=== PATIENT | female | born 1945 | race African-American/Black ===

== ENCOUNTER → 2017-07-02 | Outpatient (CLI) | payer MEDICARE, BC | LOC: BICRAD 14:38 | PROVIDERS: ATTEND Internal Medicine | DX: M25.551 Pain in right hip (principal); M16.11 Unilateral primary osteoarthritis, right hip | CPT/HCPCS: 72170 ==

== ENCOUNTER 2017-07-08 13:49 | Outpatient (CLI) | payer MEDICARE, BC ==
--- NOTE | 2017-07-08 16:05 | CT ---
CT LUMBAR SPINE 07/08/17. COMPO None. HISTORY: Low back pain, right hip pain, right lower extremity radiculopathy. TECHNIQUE: Serial axial CT imaging obtained at 2.5 mm intervals from lower thoracic spine through lower sacrum w ithout contrast. Coronal and sagittal reformatted imaging obtained. FINDINGS: There is a mild degree of levoscoliosis of the lumbar spine. Evaluation for central canal and/or neural foraminal stenosis is limited on routine CT. There is curvilinear calcification in the region of the right renal hilum, likely vascular in nature. Incompletely imaged stent material is suspected in the region of the left renal arterial vasculatur e. There are 5 lumbar-type vertebral bodies demonstrating anterolisthesis of L4 on L5 in the 5 mm range. T12-L1: No osseous cause of significant central canal and neural foraminal stenosis. Nonspecific 7 mm sclerotic lesion noted in the T12 vertebral body near the superior end plate. L1-2: There is no osseous cause of significant central canal or neural foraminal stenosis. L2-3: There is disk space narrowing with mild disk bulge. There is mild bilateral facet hypertrophy . There is no osseous cause of significant central canal stenosis. Probable mild neural foraminal s tenosis noted on the right. L3-4: There is moderate bilateral facet hypertrophy and hypertrophy of the ligamentum flavum. There is moderate/severe right neural foraminal stenosis on the basis of osteophyte encroachment. There i s a probable right paracentral disk herniation with right lateral recess stenosis. L4-5: There is severe bilateral facet hypertrophy with moderate/severe bilateral neural foraminal st enosis, right greater than left. There is a disk-osteophyte complex with disk space narrowing and a vacuum disk. There is at least moderate if not severe central canal stenosis. L5-S1: Prominent bilateral facet hypertrophy, left greater than right. Severe bilateral neural fora wyatt stenosis noted, left greater than right. Disk-osteophyte complex causes at least mild central canal stenosis. Vacuum disk noted. No acute fracture or evidence of dislocation. IMPRESSION: 1. Prominent multilevel degenerative change noted within the lumbar spine. No acute fracture or dis location is seen. Recommend MRI of the lumbar spine for full assessment of the degree of central can al and/or neural foraminal stenosis. 2. Vague 7 mm sclerotic focus within the T12 vertebral body, nonspecific. This likely represents a benign bone island in the absence of known metastatic disease/malignancy. Sclerotic metastatic focus cannot be fully excluded. This would be better assessed via MRI as well. If clinically warranted, whole body bone scan advised. CODE T POS: RODOLFO
== END 2017-07-08 13:50 | disposition home or self-care (01) ==
LOC: CT 13:49
PROVIDERS: ATTEND Internal Medicine
DX: M54.5 Low back pain (principal); M47.896 Other spondylosis, lumbar region
CPT/HCPCS: 72131

== ENCOUNTER 2017-12-23 14:18 | Outpatient (CLI) | payer MEDICARE, BC | END 2017-12-23 14:19 | disposition home or self-care (01) | LOC: BICMAMMO 14:18 | PROVIDERS: ATTEND Internal Medicine | DX: Z12.31 Encounter for screening mammogram for malignant neoplasm of breast (principal); Z13.820 Encounter for screening for osteoporosis; M85.88 Other specified disorders of bone density and structure, other site; Z78.0 Asymptomatic menopausal state; Z80.3 Family history of malignant neoplasm of breast; Z85.43 Personal history of malignant neoplasm of ovary | CPT/HCPCS: 77063; 77067; 77080 ==

== ENCOUNTER 2018-12-24 14:46 | Outpatient (CLI) | payer MEDICARE, BC ==
--- NOTE | 2018-12-24 15:50 | MMO ---
Bilateral MAMMO Bilat Screen [facility]. CLINICAL HISTORY: Patient is 73 years old and is seen for screening. The patient has the following family history of breast cancer: paternal aunt. The patient has a history of ovarian cancer. The patient has a history of left Ultrasound Guided Core Biopsy VIEWS: The views performed were: bilateral craniocaudal with tomosynthesis and bilateral mediolateral oblique with tomosynthesis. FILMS COMPARED: The present examination has been compared to prior imaging studies performed at [facility] on 12/16/2014, 12/19/2015, 12/19/2016 and 12/23/2017. MAMMOGRAM FINDINGS: The breasts are heterogeneously dense, which could obscure a lesion on mammography. Finding 1: There are stable benign appearing calcifications seen in both breasts. Finding 2: There is a stable biopsy clip seen in the left breast. There are no suspicious masses, suspicious calcifications, or new areas of architectural distortion. IMPRESSION: THERE IS NO MAMMOGRAPHIC EVIDENCE OF MALIGNANCY. A ROUTINE FOLLOW-UP MAMMOGRAM IN 1 YEAR IS RECOMMENDED. THE RESULTS OF THIS EXAM WERE SENT TO THE PATIENT. ACR BI-RADS Category 2 - Benign finding MAMMOGRAPHY NOTE: 1. A negative mammogram report should not delay a biopsy if a dominant of clinically suspicious mass is present. 2. Approximately 10% to 15% of breast cancers are not detected by mammography. 3. Adenosis and dense breasts may obscure an underlying neoplasm.
== END 2018-12-24 14:47 | disposition home or self-care (01) ==
LOC: BICMAMMO 14:46
PROVIDERS: ATTEND Internal Medicine
DX: Z12.31 Encounter for screening mammogram for malignant neoplasm of breast (principal); Z80.3 Family history of malignant neoplasm of breast; Z85.43 Personal history of malignant neoplasm of ovary
CPT/HCPCS: 77063; 77067

== ENCOUNTER 2019-05-22 08:47 | Day surgery (SDC) | payer MEDICARE, BC ==
[2019-05-21 11:08] VITALS: BMI 34.9
[2019-05-22] MEDS ORDERED: PROPOFOL 200 MG/20 ML VIAL ONE (10:23)
[2019-05-22] MEDS ORDERED: Lidocaine 1% PF 5 ML VIAL ONE (10:23)
--- NOTE | 2019-05-22 18:19 | OP ---
DATE OF PROCEDURE: 05/22/2019 OPERATIVE PROCEDURE: Esophagogastroduodenoscopy with biopsy. PREOPERATIVE DIAGNOSIS: A 74-year-old female with abdominal discomfort and nausea over the last 3 weeks and history of tarry stool. The patient on Dexilant for chronic acid reflux. The patient underwent esophagogastroduodenoscopy. POSTOPERATIVE DIAGNOSES: 1. Normal esophageal mucosa. 2. 3 cm size hiatus hernia. 3. Gastric polyps x3 with biopsy forceps. 4. Normal duodenum. DESCRIPTION OF PROCEDURE: The patient was placed on her left lateral position and was given sedation by Anesthesia Department. A Pentax video gastroscope under direct vision passed down the oropharynx past the GE junction into the stomach. The esophageal mucosa appears normal throughout. In the GE junction, no lesion seen. She had a hiatus hernia. Retroflexion failed to show any pathology in fundus or cardia. Over the gastric body, the patient was found to have 3 or 4 small polyps. One was large . In the incisura angularis and gastric antrum, no lesion seen. In the duodenal bulb and descending duodenum, no pathology seen. The stomach decompressed and the scope removed. DISCHARGE PLANNING: This is a 74-year-old female with dyspepsia, nausea over the last 4 weeks, which is persistent and also has history of passing dark stool. She underwent EGD and was found to have hiatal hernia and gastric polyps. There was no pathology seen. DISCHARGE RECOMMENDATIONS: 1. Resume medicines as before. 2. Come back to clinic in 3 weeks. Job ID: [id number]
== END 2019-05-22 12:44 | disposition home or self-care (01) ==
LOC: SDC 08:47
PROVIDERS: ATTEND Internal Medicine Gastroenterology
PROC: 0DB68ZX Excision of Stomach, Via Natural or Artificial Opening Endoscopic, Diagnostic (ICD-10-PCS; principal; 2019-05-22)
DX: K31.7 Polyp of stomach and duodenum (principal); K44.9 Diaphragmatic hernia without obstruction or gangrene; K21.9 Gastro-esophageal reflux disease without esophagitis; I10 Essential (primary) hypertension; Z79.82 Long term (current) use of aspirin
CPT/HCPCS: 88305; 88312; J2001; J2704

== ENCOUNTER 2019-12-03 08:10 | Outpatient (CLI) | payer MEDICARE, BC ==
--- NOTE | 2019-12-03 10:41 | ULT ---
ABDOMINAL ULTRASOUND: Date: 12/03/2019 INDICATION: Abdominal bloating. FINDINGS: Gallbladder has a normal sonographic appearance. No evidence of gallstones. Common bile duct is upper normal caliber measured at 6.0 mm. No evidence of intrahepatic ductal dilatation. Liver and spleen unremarkable. Pancreas is partially imaged and appears unremarkable as visualized. Both kidneys measure approximately 9.0 cm length. Echogenicity in the right kidney consistent with a midpole calculus measuring approximately 1.0 cm. No hydronephrosis. Kidneys otherwise unremarkable. A jos and IVC unremarkable as visualized. IMPRESSION: 1. Evidence of a right renal calculus. 2. Abdominal ultrasound otherwise unremarkable. POS: AGW
== END 2019-12-03 08:11 | disposition home or self-care (01) ==
LOC: BICULT 08:10
PROVIDERS: ATTEND Internal Medicine Gastroenterology
DX: R10.9 Unspecified abdominal pain (principal); N20.0 Calculus of kidney
CPT/HCPCS: 93975

== ENCOUNTER 2019-12-14 12:25 | Outpatient (CLI) | payer MEDICARE, BC ==
--- NOTE | 2019-12-14 15:52 | NM ---
HEPATOBILIARY SCAN: HISTORY:Unspecified abdominal pain, no gallstones on ultrasound of 12/03/2019 RADIOPHARMACEUTICAL: 5.3 mCi Technetium 99m Mebrofenin injected intravenously FINDINGS: There is normal tracer extraction by the liver with normal excretion into the biliary tracts and smal l bowel loops and normal filling of the gallbladder. The calculated gallbladder ejection fraction following an oral fatty meal measures 71%. IMPRESSION:Normal exam.
== END 2019-12-14 12:26 | disposition home or self-care (01) ==
LOC: NM 12:25
PROVIDERS: ATTEND Internal Medicine Gastroenterology
DX: R10.9 Unspecified abdominal pain (principal)
CPT/HCPCS: 78227; A9537

== ENCOUNTER 2019-12-28 12:36 | Outpatient (CLI) | payer MEDICARE, BC ==
--- NOTE | 2019-12-28 13:28 | MMO ---
Bilateral MAMMO Bilat Screen [facility]. CLINICAL HISTORY: Patient is 74 years old and is seen for screening. The patient has the following family history of breast cancer: paternal aunt. The patient has a history of ovarian cancer. The patient has a history of left Ultrasound Guided Core Biopsy VIEWS: The views performed were: bilateral craniocaudal with tomosynthesis and bilateral mediolateral oblique with tomosynthesis. FILMS COMPARED: The present examination has been compared to prior imaging studies performed at [facility] on 12/19/2015, 12/19/2016, 12/23/2017 and 12/24/2018. This study has been interpreted with the assistance of computer-aided detection. MAMMOGRAM FINDINGS: Finding 1: There are stable benign appearing calcifications seen in both breasts. Finding 2: There is a stable biopsy clip seen in the left breast. There are no suspicious masses, suspicious calcifications, or new areas of architectural distortion. IMPRESSION: THERE IS NO MAMMOGRAPHIC EVIDENCE OF MALIGNANCY. A ROUTINE FOLLOW-UP MAMMOGRAM IN 1 YEAR IS RECOMMENDED. THE RESULTS OF THIS EXAM WERE SENT TO THE PATIENT. ACR BI-RADS Category 2 - Benign finding MAMMOGRAPHY NOTE: 1. A negative mammogram report should not delay a biopsy if a dominant of clinically suspicious mass is present. 2. Approximately 10% to 15% of breast cancers are not detected by mammography. 3. Adenosis and dense breasts may obscure an underlying neoplasm. Reported by: DAVID ESPINOZA MD Electonically Signed: [id number]
== END 2019-12-28 12:37 | disposition home or self-care (01) ==
LOC: BICMAMMO 12:36
PROVIDERS: ATTEND Internal Medicine
DX: Z12.31 Encounter for screening mammogram for malignant neoplasm of breast (principal); Z85.43 Personal history of malignant neoplasm of ovary; Z80.3 Family history of malignant neoplasm of breast; Z91.89 Other specified personal risk factors, not elsewhere classified
CPT/HCPCS: 77063; 77067

== ENCOUNTER 2020-03-15 11:43 | Outpatient (CLI) | payer MEDICARE, BC ==
--- NOTE | 2020-03-15 12:46 | ULT ---
ULTRASOUND ABDOMINAL AORTA: HISTORY: Screening for abdominal aortic aneurysm FINDINGS: The abdominal aortic measurements are as follows: Proximal: 1.8 x 1.7 x 2.4cm Mid: 1.5 x 1.5 x 1.9cm Distal: 1.6 x 1.4 x 1.9cm IMPRESSION: No evidence of abdominal aortic aneurysm.
== END 2020-03-15 11:44 | disposition home or self-care (01) ==
LOC: BICULT 11:43
PROVIDERS: ATTEND Internal Medicine
DX: Z13.6 Encounter for screening for cardiovascular disorders (principal)
CPT/HCPCS: 76775

== ENCOUNTER 2020-11-08 11:47 | Outpatient (CLI) | payer MEDICARE | END 2020-11-08 11:48 | disposition home or self-care (01) | LOC: BICCT 11:47 | PROVIDERS: ATTEND Internal Medicine | DX: R05 Cough (principal); R94.2 Abnormal results of pulmonary function studies; R91.8 Other nonspecific abnormal finding of lung field | CPT/HCPCS: 71260 ==

== ENCOUNTER 2021-05-15 13:03 | Outpatient (CLI) | payer MEDICARE, BC | END 2021-05-15 13:04 | disposition home or self-care (01) | LOC: RAD 13:03 | PROVIDERS: ATTEND Internal Medicine Pulmonary Disease | DX: R06.00 Dyspnea, unspecified (principal) | CPT/HCPCS: 71046 ==

== ENCOUNTER 2022-01-31 13:11 | Outpatient (CLI) | payer MEDICARE | END 2022-01-31 13:12 | disposition home or self-care (01) | LOC: BICMAMMO 13:11 | PROVIDERS: ATTEND Internal Medicine | DX: Z12.31 Encounter for screening mammogram for malignant neoplasm of breast (principal); Z85.43 Personal history of malignant neoplasm of ovary; Z80.3 Family history of malignant neoplasm of breast | CPT/HCPCS: 77063; 77067 ==

== ENCOUNTER 2022-05-09 12:42 | Outpatient (CLI) | payer MEDICARE | END 2022-05-09 12:43 | disposition home or self-care (01) | LOC: RAD 12:42 | PROVIDERS: ATTEND Internal Medicine | DX: R06.00 Dyspnea, unspecified (principal) | CPT/HCPCS: 71046 ==

== ENCOUNTER 2023-02-08 13:23 | Outpatient (CLI) | payer MEDICARE | END 2023-02-08 13:24 | disposition home or self-care (01) | LOC: BICMAMMO 13:23 | PROVIDERS: ATTEND Internal Medicine | DX: Z12.31 Encounter for screening mammogram for malignant neoplasm of breast (principal); Z78.0 Asymptomatic menopausal state | CPT/HCPCS: 77063; 77067; 77080 ==

== ENCOUNTER 2024-06-18 11:41 | Outpatient (CLI) | payer MEDICARE | END 2024-06-18 11:42 | disposition home or self-care (01) | LOC: RAD 11:41 | PROVIDERS: ATTEND Internal Medicine | DX: J44.9 Chronic obstructive pulmonary disease, unspecified (principal); I77.819 Aortic ectasia, unspecified site | CPT/HCPCS: 71046 ==

== ENCOUNTER 2024-06-25 08:37 | Outpatient (CLI) | payer MEDICARE | END 2024-06-25 08:38 | disposition home or self-care (01) | LOC: CT 08:37 | PROVIDERS: ATTEND Nurse Practitioner Family | DX: I77.810 Thoracic aortic ectasia (principal); E04.1 Nontoxic single thyroid nodule | CPT/HCPCS: 71275 ==

== ENCOUNTER 2025-02-18 13:05 | Outpatient (CLI) | payer OTHER, SELFPAY | END 2025-02-18 13:06 | disposition home or self-care (01) | LOC: BICMAMMO 13:05 | PROVIDERS: ATTEND Nurse Practitioner Family | DX: Z12.31 Encounter for screening mammogram for malignant neoplasm of breast (principal) | CPT/HCPCS: 77063; 77067 ==